=== PATIENT | female | born 1955 | race Caucasian/White ===

== ENCOUNTER 2024-09-07 05:45 | Day surgery (SDC) | payer BC, OTHER ==
[2024-09-01 15:47] VITALS: BP 138/94
[~2024-09-07] VITALS: Ht 160 cm; Wt 100.0 kg
[~2024-09-07 05:45] MED LIST: ALLEGRA ALLERG180 MG PO; ALLEGRA ALLERGY60 MG PO; CHOLESTEROL MED PO; GLUCOPHAGE500 MG PO; GOUT MEDICATION PO; LACTATED RINGER'S 1,000 ML IV SCH; MOTRIN IB200 MG PO; ONDANSETRON ODT4 MG PO; OXYCODON-ACETA1 EAC2 PO; OZEMPIC0.25 MG/02 SQ; PERCOCET 7.5-31 EACH PO; PRINIVIL10 MG PO; QUESTRAN PACKET4 GM PO; SINGULAIR10 MG PO; ZOCOR10 MG PO; ZYLOPRIM100 MG PO
[2024-09-07 06:03] VITALS: BP 138/75
[2024-09-07] MEDS ORDERED: fentaNYL citrate 100 MCG/2 ML VIAL ONE (06:52)
[2024-09-07] MEDS ORDERED: ondansetron HCL 4 MG/2 ML VIAL ONE (06:55)
[2024-09-07] MEDS ORDERED: propofoL 200 MG/20 ML VIAL ONE (06:55)
[2024-09-07] MEDS ORDERED: KETOROLAC TROMETHAMINE 30 MG/ML VIAL ONE (06:55)
[2024-09-07] MEDS ORDERED: DEXAMETHASONE SOD PHOS 4 MG/ML VIAL ONE ×2 (06:55→07:01)
[2024-09-07] MEDS ORDERED: ACETAMINOPHEN 1,000 MG/100 ML VIAL ONE (06:55)
[2024-09-07] MEDS ORDERED: LIDOCAINE HCL 2% 5 ML SDV ONE (06:55)
[2024-09-07] MEDS ORDERED: IBLOOD GLUCOSE TEST STRIP 1 EA TEST VI PRN ×2 (07:00)
[2024-09-07] MEDS ORDERED: HEParin SOD (PORCINE) 5,000 UNIT/0.5 ML SYR SUB-Q SCH (07:00)
[2024-09-07] MEDS ORDERED: ondansetron HCL 4 MG/2 ML VIAL IV PRN ×2 (07:00→08:30)
[2024-09-07] MEDS ORDERED: fentaNYL citrate 50 MCG/ML SDV IV PRN (07:00)
[2024-09-07] MEDS ORDERED: LIDOCAINE HCL 1% 5 ML SDV INJ ONE (07:00)
[2024-09-07] MEDS ORDERED: NALOXONE HCL 0.4 MG SYR IV PRN ×2 (07:00→08:30)
[2024-09-07] MEDS ORDERED: METOCLOPRAMIDE HCL 10 MG/2 ML SDV IV PRN (08:30)
[2024-09-07] MEDS ORDERED: MAGNESIUM HYDROXIDE/AL HYDROX 30 ML CUP PO PRN (08:30)
[2024-09-07] MEDS ORDERED: MORPHINE SULFATE 10 MG/ML VIAL IV PRN (08:30)
[2024-09-07] MEDS ORDERED: FAMOTIDINE 20 MG TAB PO PRN (08:30)
[2024-09-07] MEDS ORDERED: HYDROCODONE/ACETA 5/325 TAB PO PRN (08:30)
[2024-09-07] MEDS ORDERED: SEVOFLURANE 250 ML BTL INH ONE (08:31)
[2024-09-07 08:41] VITALS: BP 126/71
[2024-09-07 09:41] VITALS: BP 121/76
--- NOTE | 2024-09-12 16:11 | PATH ---
[facility] [address] [facility] [place], [place] [address] Signed SPECIMEN(S): A ENDOMETRIAL CURETTINGS SPECIMEN SOURCE: A. ENDOMETRIAL CURETTINGS CLINICAL HISTORY: AUB, vaginal stenosis. 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 COMMENT: Microsatellite instability testing by immunohistochemistry is pending and will be reported in an addendum. Diagnostic notification to the office of Dr. Solorio is initiated by Dr. Kelly and will be recorded separately. As part of [facility]' Quality Improvement Program, this case was reviewed by another member of our pathology staff. JVR:priyanka MICROSCOPIC EXAMINATION: Histologic sections of all submitted blocks are examined by light microscopy. These findings, together with the gross examination, support the pathologic diagnosis. GROSS DESCRIPTION: The specimen, labeled and designated "Chandler, endometrial curettings," is received in formalin and consists of multiple polypoid fragments 10 rubbery tissue measuring 5.5 x 5.0 x 0.4 cm in area. The specimen is filtered in a bag and submitted in cassettes A1 through A4. JM (under the direct supervision of a pathologist) The Gross Description was prepared using a voice recognition system. The report was reviewed for accuracy; however, sound-alike word errors, addition and/or deletions may occur. If there is any question about this report, please contact Client Services. PERFORMING LABORATORY: Technical component was performed by [facility], [address] [place] [id number] (CLIA# [id number]). Professional interpretation was performed by [facility] - [place] PATIENT NAME: VIVIANA ARIAS PATHOLOGY DATE OF : 53 REPORT #: [id number] PHYSICIAN: CAMIYTE PATHOLOGY PCP: SULEMAN SOLORIO MD REPORT IS CONFIDENTIAL AND NOT TO BE RELEASED WITHOUT AUTHORIZATION [facility] [address] [place], [place] [address] [place] [address] (CLIA#: [id number]). Diagnostician: Wilfrid Kelly MD Pathologist Electronically Signed 09/12/2024 Copies: ~ PATIENT NAME: VIVIANA ARIAS PATHOLOGY DATE OF : 53 REPORT #: [id number] PHYSICIAN: JULIO C PATHOLOGY PCP: SULEMAN SOLORIO MD REPORT IS CONFIDENTIAL AND NOT TO BE RELEASED WITHOUT AUTHORIZATION
== END 2024-09-07 10:03 | disposition home or self-care (01) ==
LOC: DS 05:45
PROVIDERS: ATTEND Obstetrics & Gynecology
PROC: 0UDB8ZZ Extraction of Endometrium, Via Natural or Artificial Opening Endoscopic (ICD-10-PCS; principal; 2024-09-07 07:30)
DX: C54.1 Malignant neoplasm of endometrium (principal); N95.2 Postmenopausal atrophic vaginitis; E11.9 Type 2 diabetes mellitus without complications; E66.01 Morbid (severe) obesity due to excess calories; Z68.41 Body mass index [BMI] 40.0-44.9, adult; Z79.84 Long term (current) use of oral hypoglycemic drugs; Z79.85 Long-term (current) use of injectable non-insulin antidiabetic drugs; Z87.891 Personal history of nicotine dependence; Z88.0 Allergy status to penicillin; Z90.49 Acquired absence of other specified parts of digestive tract
CPT/HCPCS: 00952; J0131; J1100; J1644; J1885; J2405; J2704; J3010; J7121